=== PATIENT | male | born 1975 | race Caucasian/White ===

== ENCOUNTER → 2017-04-07 | Outpatient (REF) | payer BC ==
[2017-04-07 11:57] LABS: ALBUMIN 3.8 GM/DL (3.2-5.2); ALBUMIN/GLOBULIN RATIO 1.15 (1.00-1.93); ALKALINE PHOSPHATASE 54 U/L (45-117); ALT/SGPT 55 U/L (12-78); ANION GAP 5 MEQ/L (8-16); AST/SGOT 26 U/L (15-37); BILIRUBIN,TOTAL 0.4 MG/DL (0.2-1.0); BLOOD UREA NITROGEN 11 MG/DL (7-18); CALCIUM LEVEL 9.1 MG/DL (8.5-10.1); CARBON DIOXIDE LEVEL 31 MEQ/L (21-32); CHLORIDE LEVEL 104 MEQ/L (98-107); CHOLESTEROL LEVEL 183 MG/DL (<200); CREATININE FOR GFR 0.89 MG/DL (0.70-1.30); GLOMERULAR FILTRATION RATE > 60.0 (>60); GLUCOSE, FASTING 96 MG/DL (70-105); POTASSIUM SERUM 4.3 MEQ/L (3.5-5.1); SODIUM LEVEL 140 MEQ/L (136-145); TOTAL PROTEIN 7.1 GM/DL (6.4-8.2); TRIGLYCERIDES LEVEL 122 MG/DL (<150)
== END ==
LOC: M SFHCCLAY 07:06
PROVIDERS: ATTEND Family Medicine
DX: Z00.00 Encounter for general adult medical examination without abnormal findings (principal); Z80.42 Family history of malignant neoplasm of prostate
CPT/HCPCS: 80053; 80061; G0103

== ENCOUNTER → 2018-07-31 | Outpatient (REF) | payer BC | LOC: M SFHCCLAY 11:48 | DX: Z12.5 Encounter for screening for malignant neoplasm of prostate (principal); Z80.42 Family history of malignant neoplasm of prostate | CPT/HCPCS: G0103 ==

== ENCOUNTER → 2019-05-01 | Outpatient (REF) | payer BC | LOC: M SFHCCLAY 07:02 | PROVIDERS: ATTEND Family Medicine | DX: Z80.42 Family history of malignant neoplasm of prostate (principal); Z12.5 Encounter for screening for malignant neoplasm of prostate ==

== ENCOUNTER → 2019-09-03 | Outpatient (REF) | payer BC ==
[2019-09-03 13:35] LABS: BLOOD UREA NITROGEN 12 MG/DL (7-18); CREATININE FOR GFR 0.97 MG/DL (0.70-1.30); GLOMERULAR FILTRATION RATE > 60.0 (>60); RHEUMATOID FACTOR QUANT < 10.0 IU/ML (<15.0)
[2019-09-03 13:46] LABS: VITAMIN B12 LEVEL 322 PG/ML
[2019-09-03 13:47] LABS: FOLATE 16.4 NG/ML
[2019-09-07 15:57] LABS: ANTINUCLEAR ANTIBODIES DIRECT Negative (Negative); CERULOPLASMIN 18.6 mg/dL (16.0-31.0); COPPER PLASMA 87 ug/dL (72-166); VITAMIN B1 LEVEL WHOLE BLOOD 114.6 nmol/L (66.5-200.0); VITAMIN B6,PYRIDOXAL PHOSPHATE 20.8 ug/L (5.3-46.7); VITAMIN E(ALPHA TOCOPHEROL) 14.7 mg/L (7.0-25.1)
== END ==
LOC: M LABNEURO 10:07
PROVIDERS: ATTEND Psychiatry & Neurology Neurology
DX: R47.89 Other speech disturbances (principal)

== ENCOUNTER → 2021-07-05 | Outpatient (REF) | payer BC | LOC: M LAB REF 19:11 | PROVIDERS: ATTEND Physician Assistant | DX: L98.0 Pyogenic granuloma (principal) ==

== ENCOUNTER → 2021-10-12 | Outpatient (REF) | payer BC ==
[2021-10-12 12:30] LABS: ALT/SGPT 60 U/L (12-78); BILIRUBIN,TOTAL 0.5 MG/DL (0.2-1.0); BLOOD UREA NITROGEN 15 MG/DL (7-18); CALCIUM LEVEL 9.4 MG/DL (8.5-10.1); CARBON DIOXIDE LEVEL 27 MEQ/L (21-32); CHLORIDE LEVEL 105 MEQ/L (98-107); CHOLESTEROL LEVEL 228 MG/DL (<200); CHOLESTEROL RISK RATIO 5.066 (<5); CREATININE FOR GFR 0.91 MG/DL (0.70-1.30); GLOMERULAR FILTRATION RATE > 60.0 (>60); GLUCOSE, FASTING 94 MG/DL (70-100); HDL CHOLESTEROL 45 MG/DL (>40); LDL CHOLESTEROL 130 MG/DL (<100); NON-HDL-C 183 MG/DL; POTASSIUM SERUM 4.3 MEQ/L (3.5-5.1); SODIUM LEVEL 139 MEQ/L (136-145); TOTAL PROTEIN 7.6 GM/DL (6.4-8.2); TRIGLYCERIDES LEVEL 263 MG/DL (<150)
== END ==
LOC: M SFHCCLAY 07:22
PROVIDERS: ATTEND Family Medicine
DX: Z00.00 Encounter for general adult medical examination without abnormal findings (principal); Z13.1 Encounter for screening for diabetes mellitus; Z13.220 Encounter for screening for lipoid disorders; Z80.42 Family history of malignant neoplasm of prostate; Z12.5 Encounter for screening for malignant neoplasm of prostate
CPT/HCPCS: 80053; 80061; G0103

== ENCOUNTER → 2022-02-16 | Outpatient (REF) | payer BC | LOC: M SFHCCLAY 08:50 | PROVIDERS: ATTEND Physician Assistant | DX: R31.0 Gross hematuria (principal) ==

== ENCOUNTER → 2022-02-23 | Outpatient (REF) | payer BC ==
[2022-02-23 15:58] LABS: APPEARANCE, URINE CLEAR (CLEAR); BACTERIA, URINE AUTO NEGATIVE (NEGATIVE); BILIRUBIN, URINE AUTO NEGATIVE (NEGATIVE); BLOOD, URINE BLOOD NEGATIVE (NEGATIVE); COLOR, URINE YELLOW (YELLOW); GLUCOSE, URINE (UA) AUTO NEGATIVE (NEGATIVE); KETONE, URINE AUTO NEGATIVE (NEGATIVE); LEUKOCYTE ESTERASE, URINE AUTO NEGATIVE (NEGATIVE); NITRITE, URINE AUTO NEGATIVE (NEGATIVE); PROTEIN, URINE AUTO NEGATIVE (NEGATIVE); RBC, URINE AUTO 0 /HPF (0-3); SPECIFIC GRAVITY URINE AUTO 1.005 (1.002-1.035); SQUAMOUS EPITHELIAL CELL UR AU 0 /HPF (0-6); UROBILINOGEN, URINE AUTO 0.2 mg/dL (0.0-2.0); WBC, URINE AUTO 0 /HPF (0-3)
== END ==
LOC: M SFHCCLAY 10:37
PROVIDERS: ATTEND Physician Assistant
DX: R31.0 Gross hematuria (principal)

== ENCOUNTER → 2023-03-28 | Outpatient (REF) | payer BC ==
[2023-03-28 12:33] LABS: BLOOD UREA NITROGEN 11 MG/DL (9-23); CALCIUM LEVEL 9.2 MG/DL (8.5-10.1); CARBON DIOXIDE LEVEL 29 MMOL/L (20-31); CHLORIDE LEVEL 104 MMOL/L (98-107); CHOLESTEROL LEVEL 213 MG/DL (<200); CHOLESTEROL RISK RATIO 3.74 (<5); GLOMERULAR FILTRATION RATE > 60.0 (>60); GLUCOSE, FASTING 88 MG/DL (60-100); HDL CHOLESTEROL 56.9 MG/DL (>40); LDL CHOLESTEROL 120.5 MG/DL (<100); NON-HDL-C 156.1 MG/DL; POTASSIUM SERUM 4.3 MMOL/L (3.5-5.1); SODIUM LEVEL 139 MMOL/L (136-145); TRIGLYCERIDES LEVEL 178 MG/DL (<150)
== END ==
LOC: M SFHCCLAY 07:04
PROVIDERS: ATTEND Nurse Practitioner Family
DX: Z00.00 Encounter for general adult medical examination without abnormal findings (principal); Z13.1 Encounter for screening for diabetes mellitus; E78.5 Hyperlipidemia, unspecified; Z80.42 Family history of malignant neoplasm of prostate
CPT/HCPCS: 80048; 80061; G0103

== ENCOUNTER → 2024-11-22 | Outpatient (CLI) | payer BC | LOC: M SOG 07:48 | PROVIDERS: ATTEND Physician Assistant | DX: M79.644 Pain in right finger(s) (principal) ==

== ENCOUNTER → 2025-02-06 | Outpatient (CLI) | payer BC | LOC: M SOG 07:44 | PROVIDERS: ATTEND Orthopaedic Surgery | DX: M25.562 Pain in left knee (principal); M25.561 Pain in right knee ==

== ENCOUNTER → 2025-02-11 | Outpatient (REF) | payer BC ==
[2025-02-12 16:57] LABS: IgG P18 AB NON-REACTIVE; IgG P23 AB NON-REACTIVE; IgG P28 AB NON-REACTIVE; IgG P30 AB NON-REACTIVE; IgG P39 AB NON-REACTIVE; IgG P41 AB NON-REACTIVE; IgG P45 AB NON-REACTIVE; IgG P58 AB REACTIVE; IgG P66 AB NON-REACTIVE; IgG P93 AB NON-REACTIVE; IgM P23 AB NON-REACTIVE; IgM P39 AB NON-REACTIVE; IgM P41 AB NON-REACTIVE; LYME IgG WB INTERPRETATION NEGATIVE (NEGATIVE); LYME IgM WB INTERPRETATION NEGATIVE (NEGATIVE)
== END ==
LOC: M SFHCCLAY 08:02
PROVIDERS: ATTEND Nurse Practitioner Family
DX: M25.569 Pain in unspecified knee (principal)